=== PATIENT | female | born 1945 | race American Indian/Alaskan Native ===

== ENCOUNTER 2017-07-02 07:45 | Inpatient (IN) | payer MEDICARE ==
[2017-06-30 09:51] VITALS: BMI 25.2
[2017-07-02] MEDS ORDERED: Midazolam 2 MG/2 ML VIAL ONE ×2 (13:11)
[2017-07-02] MEDS ORDERED: Iodixanol 320 MG/ML 200 ML BOTTLE IV ONE (13:12)
--- NOTE | 2017-07-02 22:10 | CP.PCM.HP ---
Past Patient History - Past Medical History & Family History Past Medical History?: Yes - Past Social History Smoking Status: Never Smoked - CARDIAC Hx Cardiac Disorders: Yes Hx Heart Attack: Yes Hx Hypercholesterolemia: Yes Hx Hypertension: Yes - PULMONARY Hx Respiratory Disorders: No - NEUROLOGICAL Hx Neurological Disorder: No - HEENT Hx HEENT Problems: No - RENAL Hx Chronic Kidney Disease: No - ENDOCRINE/METABOLIC Hx Endocrine Disorders: No Hx Hyperthyroidism: Yes - HEMATOLOGICAL/ONCOLOGICAL Hx Blood Disorders: No - INTEGUMENTARY Hx Dermatological Problems: No - MUSCULOSKELETAL/RHEUMATOLOGICAL Hx Falls: No Hx Osteoarthritis: Yes Hx Rheumatoid Arthritis: Yes - GASTROINTESTINAL Hx Gastrointestinal Disorders: Yes Hx Gastroesophageal Reflux: Yes Other/Comment: HIATAL HERNIA - GENITOURINARY/GYNECOLOGICAL Hx Genitourinary Disorders: No - PSYCHIATRIC Hx Substance Use: No - SURGICAL HISTORY Hx Surgeries: Yes Hx Cardiac Catheterization: Yes Hx Coronary Stent: Yes (X2) Other/Comment: ECTOPIC - ANESTHESIA Hx Anesthesia: Yes Hx Anesthesia Reactions: No Hx Malignant Hyperthermia: No Has any member of the family had a problem w/ anesthesia?: No Meds Allergies/Adverse Reactions: Allergies Allergy/AdvReac Type Severity Reaction Status Date / Time No Known Allergies Allergy Verified 03/28/15 09:00 Results - Vital Signs Recent Vital Signs: Last Vital Signs Temp 97.6 F 07/02/17 18:00 Pulse 56 L 07/02/17 18:00 Resp 20 07/02/17 18:00 BP 148/78 07/02/17 18:00 Pulse Ox 97 07/02/17 18:00
[2017-07-02 23:09] LABS: CK-MB 0.3 ng/mL (0.0-3.38); TROPONIN I 0.013 ng/mL (0.00-0.120)
--- NOTE | 2017-07-03 01:43 | CARDCATH ---
PROCEDURE DATE: I was asked by Dr. Ojeda to perform cardiac catheterization, which was stated as an outpatient by Dr. Ojeda, as Dr. Ojeda had some unexpected emergency. I did evaluate the patient in the label press operator before the procedure and a recent consult was obtained. The procedure and its risks were thoroughly explained to the patient, understood and agreed for the procedure. PROCEDURE: After local infiltration with 1% lidocaine, a 6-Kenyan sheath was placed in the right femoral artery. Left and right coronary angiography was performed with 6-Kenyan JL4 and JR4 diagnostic catheters. Left ventriculogram was performed with a 6-Kenyan pigtail catheter. The patient tolerated the procedure well without any complications. ANGIOGRAPHIC FINDINGS: Selective injection of the left coronary artery revealed practically separate origins of the LAD and a very small circumflex artery. That large LAD had 50% stenosis along its entire mid and distal segments before it bifurcated into large LAD and large diagonal branch. In my judgement, this is considered as a left main equivalent. The LAD had 80% stenosis in proximal to mid segment, and the rest of the left coronary circulation was angiographically unremarkable. Selective injection of the right coronary artery revealed a medium-sized codominant vessel. entire proximal and mid RCA were angiographically unremarkable. Left ventriculogram performed in the GARCIA projection revealed normal wall motion; overall ejection fraction estimated at 65%. CONCLUSION: A 50% proximal LAD disease, which is considered left main equivalent, followed by 80% mid LAD and normal left ventricular systolic function. RECOMMENDATIONS: The patient will be admitted to telemetry and would be further evaluated by Dr. Ojeda. Papi Small MD
[2017-07-03 07:20] LABS: BASO % 0.5 % (0.0-2.0); EOS # 0.1 K/uL (0.0-0.7); EOS % 2.6 % (0.0-4.0); HEMOGLOBIN 11.9 g/dL (11.0-16.0); LYMPH # 1.7 K/uL (1.0-4.3); LYMPH % 34.1 % (20.0-40.0); MEAN CELL VOLUME 79.5 fL (81.0-99.0); MEAN CORPUSCULAR HEMOGLOBIN 25.5 pg (27.0-31.0); MEAN CORPUSCULAR HGB CONC 32.2 g/dL (33.0-37.0); MEAN PLATELET VOLUME 9.4 fL (7.2-11.7); MONO # 0.4 K/uL (0.0-0.8); MONO % 7.5 % (0.0-10.0); NEUT # 2.7 K/uL (1.8-7.0); NEUT % 55.3 % (50.0-75.0); NRBC % 0.2 % (0.0-2.0); RBC 4.64 Mil/uL (3.80-5.20); RED CELL DISTRIBUTION WIDTH 12.8 % (11.5-14.5); WHITE BLOOD COUNT 4.9 K/uL (4.8-10.8)
[2017-07-03 07:57] LABS: ALB/GLOB RATIO 1.2 (1.0-2.1); ALBUMIN 4.1 g/dL (3.5-5.0); ALT/SGPT 25 U/L (9-52); AST/SGOT 27 U/L (14-36); BLOOD UREA NITROGEN 13 mg/dL (7-17); CALCIUM 9.4 mg/dl (8.6-10.4); GFR AFRICAN-AMERICAN > 60; GFR NON-AFRICAN AMERICAN > 60; HDL CHOLESTEROL 67 mg/dL (30-70)
[2017-07-03 08:08] LABS: LDL CHOLESTEROL 162 mg/dL (0-129)
[2017-07-03 08:10] LABS: CK-MB 0.27 ng/mL (0.0-3.38)
[2017-07-03] MEDS: Metoprolol Succinate 25 mg XL Tab PO SCH (10:15)
--- NOTE | 2017-07-03 17:09 | CP.PCM.CON ---
History of Present Illness - History of Present Illness History of Present Illness: CC/HPI: 71 F with hx of CAD s/p stents, HTN, Familial hyperlipidemia admitted after Cardiac cath due to critical CAD of Proximal LAD and distal main coronary artery. Patient has h/o exertional angina and abnormal stress test. Review of Systems - Constitutional Constitutional: As Per HPI. absent: Chills - EENT Eyes: absent: Blurred Vision Ears: absent: Decreased Hearing Nose/Mouth/Throat: absent: Epistaxis - Cardiovascular Cardiovascular: Chest Pain - Respiratory Respiratory: Dyspnea - Gastrointestinal Gastrointestinal: absent: Abdominal Pain - Genitourinary Genitourinary: absent: Dysuria - Musculoskeletal Musculoskeletal: absent: Arthralgias - Integumentary Integumentary: absent: Alopecia - Neurological Neurological: absent: Abnormal Gait Past Patient History - Past Medical History & Family History Past Medical History?: Yes - Past Social History Smoking Status: Never Smoked - CARDIAC Hx Cardiac Disorders: Yes Hx Heart Attack: Yes Hx Hypercholesterolemia: Yes Hx Hypertension: Yes - PULMONARY Hx Respiratory Disorders: No - NEUROLOGICAL Hx Neurological Disorder: No - HEENT Hx HEENT Problems: No - RENAL Hx Chronic Kidney Disease: No - ENDOCRINE/METABOLIC Hx Endocrine Disorders: No Hx Hyperthyroidism: Yes - HEMATOLOGICAL/ONCOLOGICAL Hx Blood Disorders: No - INTEGUMENTARY Hx Dermatological Problems: No - MUSCULOSKELETAL/RHEUMATOLOGICAL Hx Falls: No Hx Osteoarthritis: Yes Hx Rheumatoid Arthritis: Yes - GASTROINTESTINAL Hx Gastrointestinal Disorders: Yes Hx Gastroesophageal Reflux: Yes Other/Comment: HIATAL HERNIA - GENITOURINARY/GYNECOLOGICAL Hx Genitourinary Disorders: No - PSYCHIATRIC Hx Substance Use: No - SURGICAL HISTORY Hx Surgeries: Yes Hx Cardiac Catheterization: Yes Hx Coronary Stent: Yes (X2) Other/Comment: ECTOPIC - ANESTHESIA Hx Anesthesia: Yes Hx Anesthesia Reactions: No Hx Malignant Hyperthermia: No Has any member of the family had a problem w/ anesthesia?: No Meds Allergies/Adverse Reactions: Allergies Allergy/AdvReac Type Severity Reaction Status Date / Time No Known Allergies Allergy Verified 03/28/15 09:00 - Medications Medications: Current Medications Aspirin (Ecotrin) 81 mg PO DAILY [facility] Last Admin: 07/03/17 10:14 Dose: 81 mg Ezetimibe (Zetia) 10 mg PO DAILY [facility] Last Admin: 07/03/17 10:24 Dose: 10 mg Famotidine (Pepcid) 20 mg PO DAILY [facility] Last Admin: 07/03/17 10:15 Dose: 20 mg Heparin Sodium (Porcine) (Heparin) 5,000 units SC Q12 [facility] Last Admin: 07/03/17 10:14 Dose: 5,000 units Metoprolol Succinate (Toprol Xl) 25 mg PO DAILY [facility] Last Admin: 07/03/17 10:15 Dose: 25 mg Pneumococcal Polyvalent Vaccine (Pneumovax 23 Vaccine) 0.5 ml IM .ONCE ONE Stop: 07/05/17 10:01 Rosuvastatin Calcium (Crestor) 40 mg PO DAILY [facility] Last Admin: 07/03/17 12:19 Dose: 40 mg Physical Exam - Constitutional Appears: Well - Eye Exam Eye Exam: EOMI, Normal appearance, PERRL - ENT Exam ENT Exam: Mucous Membranes Moist, Normal Exam - Neck Exam Neck exam: Positive for: Normal Inspection - Respiratory Exam Respiratory Exam: Clear to Auscultation Bilateral, NORMAL BREATHING PATTERN - Cardiovascular Exam Cardiovascular Exam: REGULAR RHYTHM, +S1, +S2 - GI/Abdominal Exam GI & Abdominal Exam: Normal Bowel Sounds, Soft - Back Exam Back exam: NORMAL INSPECTION - Neurological Exam Neurological exam: Alert, CN II-XII Intact, Oriented x3 - Psychiatric Exam Psychiatric exam: Normal Affect, Normal Mood - Skin Skin Exam: Dry, Normal Color, Warm Results - Vital Signs Recent Vital Signs: Last Vital Signs Temp 98.2 F 07/03/17 15:00 Pulse 65 07/03/17 15:00 Resp 20 07/03/17 15:00 BP 129/79 07/03/17 15:00 Pulse Ox 98 07/03/17 15:00 - Labs Result Diagrams: 07/03/17 07:15 07/03/17 07:15 Labs: Laboratory Results - last 24 hr 07/02/17 07/03/17 07/03/17 22:42 07:15 07:15 WBC 4.9 RBC 4.64 Hgb 11.9 Hct 36.9 MCV 79.5 L MCH 25.5 L MCHC 32.2 L RDW 12.8 Plt Count 157 MPV 9.4 Neut % (Auto) 55.3 Lymph % (Auto) 34.1 [place] % (Auto) 7.5 Eos % (Auto) 2.6 Baso % (Auto) 0.5 Neut # (Auto) 2.7 Lymph # (Auto) 1.7 [place] # (Auto) 0.4 Eos # (Auto) 0.1 Baso # (Auto) 0.0 Sodium 144 Potassium 4.4 Chloride 104 Carbon Dioxide 27 Anion Gap 17 BUN 13 Creatinine 0.9 Est GFR ( Amer) > 60 Est GFR (Non-Af Amer) > 60 Random Glucose 107 H Calcium 9.4 Total Bilirubin 1.2 AST 27 ALT 25 Alkaline Phosphatase 59 Total Creatine Kinase 107 CK-MB (Mass) 0.30 Troponin I 0.0130 Total Protein 7.7 Albumin 4.1 Globulin 3.6 Albumin/Globulin Ratio 1.2 Triglycerides 98 D Cholesterol 315 H LDL Cholesterol Direct 162 H HDL Cholesterol 67 TSH 3rd Generation 07/03/17 07/03/17 07:15 15:01 WBC RBC Hgb Hct MCV MCH MCHC RDW Plt Count MPV Neut % (Auto) Lymph % (Auto) [place] % (Auto) Eos % (Auto) Baso % (Auto) Neut # (Auto) Lymph # (Auto) [place] # (Auto) Eos # (Auto) Baso # (Auto) Sodium Potassium Chloride Carbon Dioxide Anion Gap BUN Creatinine Est GFR ( Amer) Est GFR (Non-Af Amer) Random Glucose Calcium Total Bilirubin AST ALT Alkaline Phosphatase Total Creatine Kinase 112 100 CK-MB (Mass) 0.27 0.30 Troponin I < 0.0120 < 0.0120 Total Protein Albumin Globulin Albumin/Globulin Ratio Triglycerides Cholesterol LDL Cholesterol Direct HDL Cholesterol TSH 3rd Generation 0.70 Assessment & Plan - Assessment and Plan (Free Text) Assessment: 1. Critical CAD (Distal Left Main 50% and Proximal LAD 90 to 95% lesions) 2. Familial hyperlipidemia with severely elevated LAD despite maximal dose of Crestor and Zetia 3. HTN 4, Exertional angina and Abnormal stress test Patient to be scheduled for High risk distal L Main and proximal LAD intervention Due to the high risk nature of the intervention patient will likely require Impella Heart pump assist Needs open heart surgery facility back up and not a candidate for [facility] Transfer her to [facility] on Wednesday or Wednesday for the procedure pending insurance approval
--- NOTE | 2017-07-03 17:49 | CP.PCM.PN ---
Subjective - Date & Time of Evaluation Date of Evaluation: 07/03/17 Time of Evaluation: 10:30 - Subjective Subjective: clinically same Objective - Vital Signs/Intake and Output Vital Signs (last 24 hours): Temp Pulse Resp BP Pulse Ox 98.2 F 65 20 129/79 98 07/03/17 15:00 07/03/17 15:00 07/03/17 15:00 07/03/17 15:00 07/03/17 15:00 - Medications Medications: Current Medications Aspirin (Ecotrin) 81 mg PO DAILY [facility] Last Admin: 07/03/17 10:14 Dose: 81 mg Ezetimibe (Zetia) 10 mg PO DAILY [facility] Last Admin: 07/03/17 10:24 Dose: 10 mg Famotidine (Pepcid) 20 mg PO DAILY [facility] Last Admin: 07/03/17 10:15 Dose: 20 mg Heparin Sodium (Porcine) (Heparin) 5,000 units SC Q12 [facility] Last Admin: 07/03/17 10:14 Dose: 5,000 units Metoprolol Succinate (Toprol Xl) 25 mg PO DAILY [facility] Last Admin: 07/03/17 10:15 Dose: 25 mg Pneumococcal Polyvalent Vaccine (Pneumovax 23 Vaccine) 0.5 ml IM .ONCE ONE Stop: 07/05/17 10:01 Rosuvastatin Calcium (Crestor) 40 mg PO DAILY [facility] Last Admin: 07/03/17 12:19 Dose: 40 mg - Labs Labs: 07/03/17 07:15 07/03/17 07:15 - Constitutional Appears: Well - Head Exam Head Exam: ATRAUMATIC, NORMAL INSPECTION, NORMOCEPHALIC - Eye Exam Eye Exam: EOMI, Normal appearance, PERRL Pupil Exam: NORMAL ACCOMODATION, PERRL - ENT Exam ENT Exam: Mucous Membranes Moist, Normal Exam - Neck Exam Neck Exam: Full ROM, Normal Inspection. absent: Lymphadenopathy - Respiratory Exam Respiratory Exam: Decreased Breath Sounds - Cardiovascular Exam Cardiovascular Exam: REGULAR RHYTHM, +S1, +S2 - GI/Abdominal Exam GI & Abdominal Exam: Soft, Diminished Bowel Sounds - Rectal Exam Rectal Exam: Deferred Assessment and Plan - Assessment and Plan (Free Text) Plan: Patient came in with the chest pain status post 90% LAD status post cardiology Continue on heparin subcu twice daily Metoprolol Aspirin Zetia Stefania Follow-up with the pv design and installation technician As ordered
[2017-07-04] MEDS: Metoprolol Succinate 25 mg XL Tab PO SCH (09:23)
--- NOTE | 2017-07-04 16:16 | CP.PCM.PN ---
Subjective - Date & Time of Evaluation Date of Evaluation: 07/04/17 Time of Evaluation: 11:40 - Subjective Subjective: clinically same Objective - Vital Signs/Intake and Output Vital Signs (last 24 hours): Temp Pulse Resp BP Pulse Ox 98.4 F 72 20 117/56 L 95 07/04/17 07:00 07/04/17 07:40 07/04/17 07:00 07/04/17 07:00 07/04/17 07:00 Intake and Output: 07/04/17 07/04/17 06:59 18:59 Intake Total Balance - Medications Medications: Current Medications Aspirin (Ecotrin) 81 mg PO DAILY [facility] Last Admin: 07/04/17 09:23 Dose: 81 mg Clopidogrel Bisulfate (Plavix) 75 mg PO DAILY [facility] Last Admin: 07/04/17 13:18 Dose: 75 mg Ezetimibe (Zetia) 10 mg PO DAILY [facility] Last Admin: 07/04/17 09:26 Dose: 10 mg Famotidine (Pepcid) 20 mg PO DAILY [facility] Last Admin: 07/04/17 09:23 Dose: 20 mg Heparin Sodium (Porcine) (Heparin) 5,000 units SC Q12 [facility] Last Admin: 07/04/17 09:25 Dose: 5,000 units Metoprolol Succinate (Toprol Xl) 25 mg PO DAILY [facility] Last Admin: 07/04/17 09:23 Dose: 25 mg Pneumococcal Polyvalent Vaccine (Pneumovax 23 Vaccine) 0.5 ml IM .ONCE ONE Stop: 07/05/17 10:01 Rosuvastatin Calcium (Crestor) 40 mg PO HS [facility] - Labs Labs: 07/03/17 07:15 07/03/17 07:15 - Constitutional Appears: Well - Head Exam Head Exam: ATRAUMATIC, NORMAL INSPECTION, NORMOCEPHALIC - Eye Exam Eye Exam: EOMI, Normal appearance, PERRL Pupil Exam: NORMAL ACCOMODATION, PERRL - ENT Exam ENT Exam: Mucous Membranes Moist, Normal Exam - Neck Exam Neck Exam: Full ROM, Normal Inspection. absent: Lymphadenopathy - Respiratory Exam Respiratory Exam: Decreased Breath Sounds - Cardiovascular Exam Cardiovascular Exam: REGULAR RHYTHM, +S1, +S2 - GI/Abdominal Exam GI & Abdominal Exam: Soft. absent: Diminished Bowel Sounds - Rectal Exam Rectal Exam: Deferred
--- NOTE | 2017-07-04 18:27 | CP.PCM.PN ---
Subjective - Date & Time of Evaluation Date of Evaluation: 07/04/17 Time of Evaluation: 13:00 - Subjective Subjective: Patient seen and evaluated Denies chest pain and dyspnea Awaiting insurance approval for transfer Add plavix for today Objective - Vital Signs/Intake and Output Vital Signs (last 24 hours): Temp Pulse Resp BP Pulse Ox 98.1 F 70 20 120/85 98 07/04/17 15:00 07/04/17 15:00 07/04/17 15:00 07/04/17 15:00 07/04/17 15:00 Intake and Output: 07/04/17 07/04/17 06:59 18:59 Intake Total Balance - Medications Medications: Current Medications Aspirin (Ecotrin) 81 mg PO DAILY [facility] Last Admin: 07/04/17 09:23 Dose: 81 mg Clopidogrel Bisulfate (Plavix) 75 mg PO DAILY [facility] Last Admin: 07/04/17 13:18 Dose: 75 mg Ezetimibe (Zetia) 10 mg PO DAILY [facility] Last Admin: 07/04/17 09:26 Dose: 10 mg Famotidine (Pepcid) 20 mg PO DAILY [facility] Last Admin: 07/04/17 09:23 Dose: 20 mg Heparin Sodium (Porcine) (Heparin) 5,000 units SC Q12 [facility] Last Admin: 07/04/17 09:25 Dose: 5,000 units Metoprolol Succinate (Toprol Xl) 25 mg PO DAILY [facility] Last Admin: 07/04/17 09:23 Dose: 25 mg Pneumococcal Polyvalent Vaccine (Pneumovax 23 Vaccine) 0.5 ml IM .ONCE ONE Stop: 07/05/17 10:01 Rosuvastatin Calcium (Crestor) 40 mg PO HS [facility] - Labs Labs: 07/03/17 07:15 07/03/17 07:15
--- NOTE | 2017-07-04 23:15 | CARD ---
APPROVED REPORT EXAM: Two-dimensional and M-mode echocardiogram with Doppler and color Doppler. Other Information Quality : GoodRhythm : INDICATION Cardiac Disease: CAD CORONARY STENT RISK FACTORS Hypertension Hyperlipidemia 2D DIMENSIONS IVSd0.8 (0.7-1.1cm)LVDd4.1 (3.9-5.9cm) PWd1.0 (0.7-1.1cm)LVDs2.7 (2.5-4.0cm) FS (%) 35.0 %LVEF (%)64.8 (>50%) M-Mode DIMENSIONS RVDd1.68 (2.1-3.2cm)Left Atrium (MM)3.44 (2.5-4.0cm) IVSd0.88 (0.7-1.1cm)Aortic Root3.00 (2.2-3.7cm) LVDd5.00 (4.0-5.6cm)Aortic Cusp Exc.2.09 (1.5-2.0cm) PWd0.90 (0.7-1.1cm)FS (%) 51 % LVDs2.47 (2.0-3.8cm) Mitral Valve MV E Hzmtttkm75.3cm/sMV A Pqskuiij21.7cm/sE/A ratio0.8 TDI E/Lateral E'0.0E/Medial E'0.0 Tricuspid Valve TR Peak [id number]/sTR Peak Gr.[id number] LEFT VENTRICLE The left ventricle is normal size. There is normal left ventricular wall thickness. Left ventricle systolic function is normal. The Ejection Fraction is 60-65%. There is normal LV segmental wall motion. The left ventricular diastolic function is abnormal. Transmitral Doppler flow pattern is Grade I-abnormal relaxation pattern. No left ventricle thrombus noted on this study. RIGHT VENTRICLE The right ventricle is normal size. The right ventricular systolic function is normal. ATRIA The left atrium size is normal. The right atrium size is normal. AORTIC VALVE The aortic valve is mildly sclerotic. The aortic valve is trileaflet. No aortic regurgitation is present. There is no aortic valvular stenosis. There is no aortic valvular vegetation. MITRAL VALVE Mitral annular calcification is mild. There is no evidence of mitral valve prolapse. There is no mitral valve stenosis. There is no mitral valve regurgitation noted. TRICUSPID VALVE The tricuspid valve is normal in structure. There is mild tricuspid regurgitation. Right ventricular systolic pressure is estimated at 30-40 mmHg. There is no pulmonary hypertension. There is no tricuspid valve prolapse or vegetation. There is no tricuspid valve stenosis. PULMONIC VALVE The pulmonic valve is not well visualized. GREAT VESSELS The aortic root is normal in size. The IVC is normal in size and collapses >50% with inspiration. PERICARDIAL EFFUSION There is no pericardial effusion. There is no pleural effusion. <Conclusion> The left ventricle is normal size. Left ventricle systolic function is normal. The Ejection Fraction is 60-65%. The left ventricular diastolic function is abnormal. Transmitral Doppler flow pattern is Grade I-abnormal relaxation pattern. The right ventricle is normal size. The right ventricular systolic function is normal. The left atrium size is normal. The right atrium size is normal. There is mild tricuspid regurgitation.
[2017-07-05] MEDS ORDERED: Pneumococcal 23-Valent Vaccine IM ONE (10:00)
[2017-07-05] MEDS: Metoprolol Succinate 25 mg XL Tab PO SCH (10:34)
[2017-07-05 15:43] VITALS: RESP 20
--- NOTE | 2017-07-05 18:00 | CP.PCM.PN ---
Subjective - Date & Time of Evaluation Date of Evaluation: 07/05/17 Time of Evaluation: 12:20 - Subjective Subjective: clinically same Objective - Vital Signs/Intake and Output Vital Signs (last 24 hours): Temp Pulse Resp BP Pulse Ox 98 F 77 20 119/74 100 07/05/17 15:42 07/05/17 15:42 07/05/17 15:42 07/05/17 15:42 07/05/17 15:42 Intake and Output: 07/05/17 07/05/17 06:59 18:59 Intake Total 100 Balance 100 - Medications Medications: Current Medications Aspirin (Ecotrin) 81 mg PO DAILY [facility] Last Admin: 07/05/17 10:34 Dose: 81 mg Clopidogrel Bisulfate (Plavix) 75 mg PO DAILY [facility] Last Admin: 07/05/17 10:34 Dose: 75 mg Ezetimibe (Zetia) 10 mg PO DAILY [facility] Last Admin: 07/05/17 10:34 Dose: 10 mg Famotidine (Pepcid) 20 mg PO DAILY [facility] Last Admin: 07/05/17 10:34 Dose: 20 mg Heparin Sodium (Porcine) (Heparin) 5,000 units SC Q12 [facility] Last Admin: 07/05/17 10:35 Dose: 5,000 units Metoprolol Succinate (Toprol Xl) 25 mg PO DAILY [facility] Last Admin: 07/05/17 10:34 Dose: 25 mg Rosuvastatin Calcium (Crestor) 40 mg PO HS [facility] Last Admin: 07/04/17 21:23 Dose: 40 mg - Labs Labs: 07/03/17 07:15 07/03/17 07:15 - Constitutional Appears: Well - Head Exam Head Exam: ATRAUMATIC, NORMAL INSPECTION, NORMOCEPHALIC - Eye Exam Eye Exam: EOMI, Normal appearance, PERRL Pupil Exam: NORMAL ACCOMODATION, PERRL - ENT Exam ENT Exam: Mucous Membranes Moist, Normal Exam - Neck Exam Neck Exam: Full ROM, Normal Inspection. absent: Lymphadenopathy - Respiratory Exam Respiratory Exam: Decreased Breath Sounds - Cardiovascular Exam Cardiovascular Exam: REGULAR RHYTHM, +S1, +S2 - GI/Abdominal Exam GI & Abdominal Exam: Soft, Diminished Bowel Sounds - Rectal Exam Rectal Exam: Deferred Assessment and Plan - Assessment and Plan (Free Text) Plan: [facility] cardiac intervention most likely bypass Discussed with Dr. Ojeda in Patient to be transferred as early as possible Continue aspirin rosuvastatin continue Plavix
[2017-07-05 21:52] LABS: BASO % 0.5 % (0.0-2.0); EOS # 0.2 K/uL (0.0-0.7); EOS % 2.7 % (0.0-4.0); HEMOGLOBIN 11.2 g/dL (11.0-16.0); LYMPH # 1.9 K/uL (1.0-4.3); LYMPH % 30.7 % (20.0-40.0); MEAN CORPUSCULAR HGB CONC 31.6 g/dL (33.0-37.0); MEAN PLATELET VOLUME 9.1 fL (7.2-11.7); MONO # 0.5 K/uL (0.0-0.8); MONO % 7.5 % (0.0-10.0); NEUT # 3.7 K/uL (1.8-7.0); NEUT % 58.6 % (50.0-75.0); NRBC % 0.1 % (0.0-2.0); RBC 4.48 Mil/uL (3.80-5.20); RED CELL DISTRIBUTION WIDTH 12.5 % (11.5-14.5); WHITE BLOOD COUNT 6.2 K/uL (4.8-10.8)
[2017-07-05 22:01] LABS: PROTHROMBIN TIME 10.9 SECONDS (9.7-12.2)
[2017-07-05 22:03] LABS: ALB/GLOB RATIO 1.1 (1.0-2.1); ALBUMIN 4.1 g/dL (3.5-5.0); ALT/SGPT 23 U/L (9-52); AST/SGOT 24 U/L (14-36); BLOOD UREA NITROGEN 13 mg/dL (7-17); CALCIUM 9.2 mg/dl (8.6-10.4); GFR AFRICAN-AMERICAN > 60; GFR NON-AFRICAN AMERICAN > 60
--- NOTE | 2017-07-05 23:07 | CP.PCM.PN ---
Subjective - Date & Time of Evaluation Date of Evaluation: 07/05/17 Time of Evaluation: 19:40 - Subjective Subjective: Patient seen and evaluated For L Main PCI tomorrow in am with Impella heart pump support Objective - Vital Signs/Intake and Output Vital Signs (last 24 hours): Temp Pulse Resp BP Pulse Ox 98 F 77 20 119/74 100 07/05/17 15:42 07/05/17 15:42 07/05/17 15:42 07/05/17 15:42 07/05/17 15:42 - Medications Medications: Current Medications Aspirin (Ecotrin) 81 mg PO DAILY [facility] Last Admin: 07/05/17 10:34 Dose: 81 mg Clopidogrel Bisulfate (Plavix) 75 mg PO DAILY [facility] Last Admin: 07/05/17 10:34 Dose: 75 mg Ezetimibe (Zetia) 10 mg PO DAILY [facility] Last Admin: 07/05/17 10:34 Dose: 10 mg Famotidine (Pepcid) 20 mg PO DAILY [facility] Last Admin: 07/05/17 10:34 Dose: 20 mg Metoprolol Succinate (Toprol Xl) 25 mg PO DAILY [facility] Last Admin: 07/05/17 10:34 Dose: 25 mg Rosuvastatin Calcium (Crestor) 40 mg PO HS [facility] Last Admin: 07/05/17 22:16 Dose: 40 mg - Labs Labs: 07/05/17 21:47 07/05/17 21:47 PT 10.9 SECONDS (9.7-12.2) 07/05/17 21:47 INR 1.0 07/05/17 21:47 APTT 29 SECONDS (21-34) 07/05/17 21:47
[2017-07-06 00:44] VITALS: PULSE 65
[2017-07-06 01:24] VITALS: BP 131/74; TEMP 97.9; O2SAT 98
[2017-07-06] MEDS: Metoprolol Succinate 25 mg XL Tab PO SCH (06:53)
== END 2017-07-06 07:00 | disposition short-term general hospital (02) | DRG 287 ==
LOC: C.CATHLAB 07:45 → C.6T 16:35 → C.9E 16:35
PROVIDERS: ADMIT Internal Medicine Nephrology; ATTEND Internal Medicine Nephrology
PROC: 4A023N7 Measurement of Cardiac Sampling and Pressure, Left Heart, Percutaneous Approach (ICD-10-PCS; principal; 2017-07-02)
PROC: B211YZZ Fluoroscopy of Multiple Coronary Arteries using Other Contrast (ICD-10-PCS; 2017-07-02)
PROC: B215YZZ Fluoroscopy of Left Heart using Other Contrast (ICD-10-PCS; 2017-07-02)
DX: I25.118 Atherosclerotic heart disease of native coronary artery with other forms of angina pectoris (principal); E78.00 Pure hypercholesterolemia, unspecified; I10 Essential (primary) hypertension; K21.9 Gastro-esophageal reflux disease without esophagitis; M06.9 Rheumatoid arthritis, unspecified

== ENCOUNTER 2018-05-27 11:31 | Outpatient (CLI) | payer MEDICARE | END 2018-05-27 11:32 | disposition home or self-care (01) | LOC: C.LAB 11:31 | DX: E78.2 Mixed hyperlipidemia (principal); I25.10 Atherosclerotic heart disease of native coronary artery without angina pectoris ==